=== PATIENT | female | born 1990 | race Caucasian/White ===

== ENCOUNTER 2018-07-30 23:40 | Emergency (ER) | payer OTHER ==
[2018-07-31] MEDS ORDERED: NS 0.9% 1000 ML* 1,000 ML IV ONE (00:10)
[2018-07-31] MEDS ORDERED: LORazepam INJ* 2 MG/ML 1 ML VIAL IV PUSH ONE (00:11)
--- NOTE | 2018-07-31 00:11 | ED ---
Shortness of Breath - HPI Summary HPI Summary: A 28 y/o F presents to ED with c/o SOB onset approx 2330 on 07/30/18. Associated sx: nausea. Pt is visiting [place] with her girlfriend, who is present , for the weekend. They had a disagreement prior in the day, but it was over before onset of sx. PMHx: anxiety. - History of Current Complaint Chief Complaint: EDShortnessOfBreath Time Seen by Provider: 07/31/18 00:05 Hx Obtained From: Patient, Family/[employer] - girlfriend present Onset/Duration: Lasting Minutes, Still Present Timing: Constant - Allergy/Home Medications Allergies/Adverse Reactions: Allergies Allergy/AdvReac Type Severity Reaction Status Date / Time Penicillins Allergy Unknown Verified 07/30/18 23:42 Reaction Details Sulfa (Sulfonamide Allergy Unknown Verified 07/30/18 23:42 Antibiotics) Reaction Details Home Medications: Home Medications Viibryd 30 mg PO DAILY 07/31/18 [History Confirmed 07/31/18] Vyvanse 30 mg PO DAILY 07/31/18 [History Confirmed 07/31/18] PMH/Surg Hx/FS Hx/Imm Hx Previously Healthy: No Sensory History: Denies: Hx Legally Blind Opthamlomology History: Denies: Hx Legally Blind Psychiatric History: Reports: Hx Anxiety Infectious Disease History: No Infectious Disease History: Reports: Traveled Outside the [place] in Last 30 Days - Family History Known Family History: Positive: Cardiac Disease, Hypertension, Diabetes - Social History Occupation: Unemployed - OTHER Lives: Alone Alcohol Use: Occasionally Substance Use Type: Reports: Marijuana Smoking Status (MU): Former Smoker Review of Systems Negative: Fever Positive: Shortness Of Breath Positive: Nausea All Other Systems Reviewed And Are Negative: Yes Physical Exam - Summary Physical Exam Summary: VITAL SIGNS: Reviewed. GENERAL: Patient is a well-developed and nourished FEMALE who is seemingly anxiously. Patient is hyperventilating. HEAD AND FACE: No signs of trauma. No ecchymosis, hematomas or skull depressions. No sinus tenderness. EYES: PERRLA, EOMI x 2, No injected conjunctiva, no nystagmus. EARS: Hearing grossly intact. Ear canals and tympanic membranes are within normal limits. MOUTH: Oropharynx within normal limits. NECK: Supple, trachea is midline, no adenopathy, no JVD, no carotid bruit, no c- spine tenderness, neck with full ROM. CHEST: Symmetric, no tenderness at palpation LUNGS: Clear to auscultation bilaterally. No wheezing or crackles. CVS: Tachycardic, S1 and S2 present, no murmurs or gallops appreciated. ABDOMEN: Soft, non-tender. No signs of distention. No rebound no guarding, and no masses palpated. Bowel sounds are normal. EXTREMITIES: FROM in all major joints, no edema, no cyanosis or clubbing. NEURO: Alert and oriented x 3. No acute neurological deficits. Speech is normal and follows commands. SKIN: Dry and warm Triage Information Reviewed: Yes Vital Signs On Initial Exam: Initial Vitals Temp Pulse Resp BP Pulse Ox 98.5 F 160 26 135/96 99 07/30/18 23:41 07/30/18 23:41 07/30/18 23:41 07/30/18 23:41 07/30/18 23:41 Vital Signs Reviewed: Yes Diagnostics - Vital Signs Vital Signs Temp Pulse Resp BP Pulse Ox 07/31/18 00:00 125 99 07/30/18 23:51 135 126/94 99 07/30/18 23:41 98.5 F 160 26 135/96 99 - Laboratory Result Diagrams: 07/31/18 00:49 07/31/18 00:49 Lab Statement: Any lab studies that have been ordered have been reviewed, and results considered in the medical decision making process. - EKG 0031 Cardiac Rate: NL - at 94 bpm EKG Rhythm: Sinus Rhythm EKG Interpretation: nml axis, nml interval, no ischemic changes Re-Evaluation - Re-Evaluation 1 Re-Evaluation Time: 01:21 Change: Worse Comment: Pt is feeling better breathing-pfeiffer, but now c/o RUQ abd pain and nausea. Pt has RUQ tenderness upon exam. U/S is unavailable at this time. Course/Dx - Course Course Of Treatment: Pt is a 28 y/o F c/o SOB and nausea onset approx 2330 on . Pt is visiting [place] with her girlfriend, who is present, for the weekend. PMHx: anxiety. Upon reeval, pt was c/o abd pain. U/S is unavailable. Will D/C home to f/u with PCP and outpatient U/S. - Diagnoses Provider Diagnoses: Anxiety, Biliary colic Discharge - Sign-Out/Discharge Documenting (check all that apply): Patient Departure - DC - Discharge Plan Condition: Stable Disposition: HOME Patient Education Materials: Biliary Colic (ED), Anxiety (ED) Referrals: No Primary Care Phys,NOPCP [Primary Care Provider] - [facility] [place] [facility]FERR[facility] [Outside] Additional Instructions: RETURN TO THE EMERGENCY DEPARTMENT FOR CHANGING OR WORSENING SYMPTOMS. Follow up with your primary care provider to schedule an out-patient ultrasound. - Attestation Statements Document Initiated by Scribe: Yes Documenting Scribe: Nicki Carter Provider For Whom Scribe is Documenting (Include Credential): Dr. Radha Hester Scribe Attestation: I, Nicki Carter, scrharshed for Dr. Radha Hester on 07/31/18 at 0232.
[2018-07-31 01:01] LABS: ABS Basophils 0.1 10^3/ul (0-0.2); ABS Eosinophils 0.2 10^3/ul (0-0.6); ABS Monocytes 0.7 10^3/ul (0-0.8); ABS Neutrophils 6.3 10^3/ul (1.5-7.7); ABS Nucleated RBC 0 10^3/ul; Eosinophil % 1.7 % (0-6); Hematocrit 39 % (35-47); Hemoglobin 13.6 g/dl (12.0-16.0); Lymphocyte % 35.3 % (25-47); Mean Corpuscular HGB Conc 35 g/dl (31-36); Mean Corpuscular Hemoglobin 32 pg (27-31); Mean Corpuscular Volume 93 fL (80-97); Mean Platelet Volume 10.2 um3 (7.4-10.4); Nucleated Red Blood Cells % 0; Platelet Count 273 10^3/ul (150-450); Red Blood Count 4.26 10^6/ul (4.00-5.40); Red Cell Distribution Width 13 % (10.5-15); White Blood Count 11.4 10^3/ul (3.5-10.8)
[2018-07-31 01:19] LABS: EGFR Non-African American 77.5 (>60)
[2018-07-31] MEDS ORDERED: Morphine INJ* 2 MG/ML 1 ML SYRINGE (TWO MG - NEW SYRINGE VERSION) IV ONE (01:22)
[2018-07-31] MEDS ORDERED: Ondansetron INJ* 2 MG/ML VIAL IV ONE (01:25)
[2018-07-31 02:52] VITALS: BP 113/70
== END 2018-07-31 02:52 | disposition home or self-care (01) ==
LOC: ED 23:40
DX: F41.9 Anxiety disorder, unspecified (principal); K80.50 Calculus of bile duct without cholangitis or cholecystitis without obstruction; R06.02 Shortness of breath; R11.0 Nausea
CPT/HCPCS: 36415; 80053; 83735; 85025; 93005; 96374; 96375; 99283; J2060; J2270; J2405